=== PATIENT | male | born 1940 ===

== ENCOUNTER 2018-03-23 22:00 | Observation (INO) ==
[2018-03-23] MEDS ORDERED: PIPERACILLIN SODIUM/TAZOBACTAM 3.375 GM in DEXTROSE 5% IN WATER 50 ML IV ONE (22:20)
--- NOTE | 2018-03-23 23:00 | Emergency Department Note ---
Animal Bite HPI - General Chief Complaint: Animal Bite Stated Complaint: cat bite to left thumb Time Seen by Provider: 03/23/18 22:18 Source: patient Mode of arrival: ambulatory - History of Present Illness HPI Narrative: This 77-year-old male was seen at [facility] in [place] today for inflammation and swelling and redness to his left thumb after having had a cat bite to that thumb yesterday morning. The swelling has gotten significantly worse today and a hand surgeon, Dr. Hernandez, was consulted with patient being sent to this emergency room and recommendation for IV antibiotics and overnight treatment. Patient was seen by Dr. Blanc's physician digital assistant, Christopher Cheek PA-C, here in the emergency room and an I&D was performed on the left thumb distal pad area with limited purulence. Patient's thumb was significantly enlarged and reddened with 2 puncture wounds in the distal part of the pad. There were markings for some slight redness that extended onto the radial aspect of the wrist and forearm slight. REVIEW OF SYSTEMS: No fevers, chills, sweats, chest pain, shortness of breath, abdominal pain, dysuria. He has some chronic back pain. Has some history of anxiety and depression but not taking medications for this he has a history that includes PTSD, ADHD, OCD. - Related Data Home Medications Medication Instructions Recorded Confirmed ALPRAZolam [Xanax] 0.25 mg PO DAILY 03/23/18 03/23/18 Acetaminophen [Tylenol] 500 mg PO BID 03/23/18 03/23/18 Aspirin [Robbin Chewable Aspirin] 81 mg PO DAILY 03/23/18 03/23/18 Atorvastatin [Lipitor] 80 mg PO DAILY 03/23/18 03/23/18 Ibuprofen [Motrin] 200 mg PO BID 03/23/18 03/23/18 Loratadine [Allerclear] 10 mg PO DAILY 03/23/18 03/23/18 Losartan [Cozaar] 50 mg PO DAILY 03/23/18 03/23/18 Metoprolol Succinate 50 mg PO DAILY 03/23/18 03/23/18 guaiFENesin [Guaifenesin] 800 mg PO BID 03/23/18 03/23/18 Allergies Allergy/AdvReac Type Severity Reaction Status Date / Time aspirin Allergy Unknown Verified 03/23/18 22:50 Carbonic Anhydrase Inhibitors Allergy Unknown Verified 03/23/18 22:50 codeine Allergy Unknown Verified 03/23/18 22:50 Diclofenac Allergy Unknown Verified 03/23/18 22:50 Erythromycin Base Allergy Unknown Verified 03/23/18 22:50 fluoxetine Allergy Unknown Verified 03/23/18 22:50 Histamine H2 Inhibitors Allergy Unknown Verified 03/23/18 22:50 levofloxacin Allergy Unknown Verified 03/23/18 22:50 Macrolide Antibiotics Allergy Unknown Verified 03/23/18 22:50 NSAIDS (Non-Steroidal Allergy Unknown Verified 03/23/18 22:50 Anti-Inflamma Phenothiazines Allergy Unknown Verified 03/23/18 22:50 prochlorperazine Allergy Unknown Verified 03/23/18 22:50 Pyrazoles Allergy Unknown Verified 03/23/18 22:50 Quinolones Allergy Unknown Verified 03/23/18 22:50 ranitidine Allergy Unknown Verified 03/23/18 22:50 Salicylates Allergy Unknown Verified 03/23/18 22:50 Sulfa (Sulfonamide Allergy Unknown Verified 03/23/18 22:50 Antibiotics) sulfamethoxazole Allergy Unknown Verified 03/23/18 22:50 Sulfonylureas Allergy Unknown Verified 03/23/18 22:50 Thiazides Allergy Unknown Verified 03/23/18 22:50 CUCUMBERS,ONIONS,SOY,TUNA Allergy Unknown Uncoded 11/11/14 04:22 SEAFOOD,CAFFEINE,CHOCOLAT Allergy Unknown Uncoded 11/11/14 04:22 TOBACCO,MOLDS Allergy Unknown Uncoded 11/11/14 04:22 Yes to Iodine Allergy Unknown Uncoded 11/11/14 04:22 Yes to Latex Allergy Unknown Uncoded 11/11/14 04:22 Past Medical History - Past Medical History Medical history: Reports: atrial fibrillation (History of remotely.), 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 Denies: CVA, DM, TIA Psychiatric history: Reports: anxiety, depression, ADD, PTSD, other (OCD) Surgical history ED: Reports: coronary bypass (CABG) - Social History smoking status: Never smoker Alcohol use: Reports: Rarely (Approximately a half a shot of cognac every 2-3 weeks.) Drug use: Reports: none. Denies: marijuana Physical Exam Limitations: no limitations General appearance: alert, in no apparent distress Head: atraumatic, normocephalic Eye: Present: EOMI Neck: Present: trachea midline. Absent: lymphadenopathy, thyromegaly Respiratory: Present: normal lung sounds bilaterally, other (Somewhat distant.) . Absent: respiratory distress, wheezes, stridor, accessory muscle use, prolonged expiratory phase Cardiovascular: Present: regular rate, normal rhythm. Absent: systolic murmur, diastolic murmur Abdominal: Present: soft. Absent: distention, tenderness, guarding, rebound, rigidity, organomegaly, mass Extremities: Absent: pedal edema, pretibial edema, calf tenderness Back: Absent: CVA tenderness (R), CVA tenderness (L), spinous process tenderness Neurological: Present: alert, oriented X3 Psychiatric: Present: normal affect, normal mood Skin: Present: warm, dry Course Vital Signs Temperature 97.7 F 03/23/18 22:01 Pulse Rate 94 H 03/23/18 22:01 Respiratory Rate 17 03/23/18 22:01 Blood Pressure 206/84 03/23/18 22:01 Pulse Oximetry (%) 96 03/23/18 22:01 Temperature 97.7 F 03/23/18 22:01 Pulse Rate 94 H 03/23/18 22:01 Respiratory Rate 17 03/23/18 22:01 Blood Pressure 206/84 03/23/18 22:01 Pulse Oximetry (%) 96 03/23/18 22:01 Animal Bite - Medical Records Medical records reviewed: Yes I reviewed the patient's medical records. Disposition Pt seen by BILINGUAL SPEECH LANGUAGE PATHOLOGIST/PA only: No Clinical Impression: Cellulitis of thumb, left Cat bite of finger Qualifiers: Encounter type: subsequent encounter Qualified Code(s): S61.259D - Open bite of unspecified finger without damage to nail, subsequent encounter; W55.01XD - Bitten by cat, subsequent encounter Summary: Patient was being sent here from out of town. Requested concerns for evaluation for possible infectious tenosynovitis which was not seeming to be found. Patient was examined and I&D attempted by Dr. Pérezs, PA, Christopher Cheek PA-C; concern is how rapidly it progressed with some proximal extension of pinkness and enlargement. Pain is actually not been severe. It appears that this is less likely severe as far as a infectious tenosynovitis because his thumb is able to move easily and well including no pain with flexion or extension at the IP joint. Therefore all that is needed is the I&D and a few doses of IV antibiotics so patient will be admitted observation most likely. I spoke with Dr. Hernandez, hospitalist, who kindly accepted evaluating and patient's care in the hospital. Labs from [facility] demonstrated a mild hyponatremia at 129 and mildly elevated white count and mild anemia. Patient was afebrile and without tachycardia and did not appear toxic. Disposition: Xfer As Outpt/Obs ([facility]) Condition: Fair Referrals: Lauro Snwo MD [Primary Care Provider] -
--- NOTE | 2018-03-23 23:21 | Internal Med History&Physical ---
Medical - H&P: [facility] Patient information: Note initiated : 03/23/18 at 11:19 pm Service Date, if different from initiated Date: [] Patient: Rashaun Martin 77 y/o M admitted on for cat bite to left thumb. Chief Complaint: [] History of present illness: Mr. Martin is a 77 year old M 7-year-old male who was bitten by his cat Friday evening put a Band-Aid on it the next morning while at work and took off his bandage and noticed that it significantly swelled up with redness mild tenderness. Went into the local [facility] while evaluated there Dr. Christine was contacted patient was sent down to try to ER where Dr. owens PA performed an I&D and dressed it and put up started him on some IV antibiotics requested observation overnight in the hospital. Patient denies any fevers or chills. Has high pain tolerance to him states it looks painful but is not too uncomfortable for him. Vital signs are stable no leukocytosis. Afebrile Review of Systems: Positive for left thumb swelling redness tenderness , denies headache/fever/ chills/nausea/vomiting/chest or abdominal pain/cough/dyspnea/diarrhea. Remaining 10 point review of systems reviewed negative Medical - H&P: PMH Medical history: Past medical history includes CAD with CABG x2 vessel in 2011 Hypertension COPD not oxygen dependent Peptic ulcer disease next anxiety Past surgical history Knee surgery CABG x2 Family history Mother had CAD in father had CAD Social history Patient denies tobacco abuse drinks alcohol socially lives with family members Medical - H&P: Meds Home Medications Medication Instructions Recorded Confirmed Type ALPRAZolam [Xanax] 0.25 mg PO DAILY 03/23/18 03/23/18 History Acetaminophen [Tylenol] 500 mg PO BID 03/23/18 03/23/18 History Aspirin [Robbin Chewable Aspirin] 81 mg PO DAILY 03/23/18 03/23/18 History Atorvastatin [Lipitor] 80 mg PO DAILY 03/23/18 03/23/18 History Ibuprofen [Motrin] 200 mg PO BID 03/23/18 03/23/18 History Loratadine [Allerclear] 10 mg PO DAILY 03/23/18 03/23/18 History Losartan [Cozaar] 50 mg PO DAILY 03/23/18 03/23/18 History Metoprolol Succinate 50 mg PO DAILY 03/23/18 03/23/18 History guaiFENesin [Guaifenesin] 800 mg PO BID 03/23/18 03/23/18 History Allergies Allergy/AdvReac Type Severity Reaction Status Date / Time aspirin Allergy Unknown Verified 03/23/18 22:50 Carbonic Anhydrase Inhibitors Allergy Unknown Verified 03/23/18 22:50 codeine Allergy Unknown Verified 03/23/18 22:50 Diclofenac Allergy Unknown Verified 03/23/18 22:50 Erythromycin Base Allergy Unknown Verified 03/23/18 22:50 fluoxetine Allergy Unknown Verified 03/23/18 22:50 Histamine H2 Inhibitors Allergy Unknown Verified 03/23/18 22:50 levofloxacin Allergy Unknown Verified 03/23/18 22:50 Macrolide Antibiotics Allergy Unknown Verified 03/23/18 22:50 NSAIDS (Non-Steroidal Allergy Unknown Verified 03/23/18 22:50 Anti-Inflamma Phenothiazines Allergy Unknown Verified 03/23/18 22:50 prochlorperazine Allergy Unknown Verified 03/23/18 22:50 Pyrazoles Allergy Unknown Verified 03/23/18 22:50 Quinolones Allergy Unknown Verified 03/23/18 22:50 ranitidine Allergy Unknown Verified 03/23/18 22:50 Salicylates Allergy Unknown Verified 03/23/18 22:50 Sulfa (Sulfonamide Allergy Unknown Verified 03/23/18 22:50 Antibiotics) sulfamethoxazole Allergy Unknown Verified 03/23/18 22:50 Sulfonylureas Allergy Unknown Verified 03/23/18 22:50 Thiazides Allergy Unknown Verified 03/23/18 22:50 CUCUMBERS,ONIONS,SOY,TUNA Allergy Unknown Uncoded 11/11/14 04:22 SEAFOOD,CAFFEINE,CHOCOLAT Allergy Unknown Uncoded 11/11/14 04:22 TOBACCO,MOLDS Allergy Unknown Uncoded 11/11/14 04:22 Yes to Iodine Allergy Unknown Uncoded 11/11/14 04:22 Yes to Latex Allergy Unknown Uncoded 11/11/14 04:22 Medical - H&P: Exam - Constitutional Vitals: Temp Pulse Resp BP Pulse Ox 97.7 F 94 H 17 206/84 96 03/23/18 22:01 03/23/18 22:01 03/23/18 22:01 03/23/18 22:01 10/15/18 22:01 Exam: General: Alert, Awake, No acute Distress HEENT: EOMI, pupils equal round react to light, normocephalic atraumatic, neck supple CV: RRR, No murmurs, normal s1/s2 Pulm: Clear b/l, no wheezing/rhonchi/rales Abd: soft, nontender, +BS x4 Ext: no clubbing/cyanosis/edema with the exception of the left upper extremity: His left thumb is dressed status post I&D at the base able to see swelling and redness. 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 Hernandez following -Continue home medications - -ppx:lovenox
[2018-03-23] MEDS ORDERED: CLINDAMYCIN 600 MG/4 ML VIAL ONE (23:49)
[2018-03-24] MEDS ORDERED: ACETAMINOPHEN 325 MG TABLET PO PRN (00:09)
[2018-03-24] MEDS ORDERED: 0.9 % SODIUM CHLORIDE 1,000 ML IV SCH (00:09)
[2018-03-24] MEDS ORDERED: HYDROmorphone 2 MG/ML VIAL IV PRN (00:09)
[2018-03-24] MEDS ORDERED: HYDROcodone/APAP 5/325MG TABLET PO PRN (00:09)
[2018-03-24] MEDS ORDERED: ONDANSETRON 4 MG/2 ML VIAL IV PRN (00:09)
[2018-03-24] MEDS: PIPERACILLIN SODIUM/TAZOBACTAM 3.375 GM in DEXTROSE 5% IN WATER 50 ML IV SCH ×5 (00:14→23:20)
[2018-03-24] MEDS ORDERED: LABETALOL HCL 20 MG/4 ML SYRINGE IV ONE (00:55)
[2018-03-24] MEDS: CLINDAMYCIN 600 MG in DEXTROSE 5% IN WATER 50 ML IV SCH ×5 (01:15→23:20)
--- NOTE | 2018-03-24 01:53 | History and Physical Report ---
DATE OF ADMISSION: 03/24/2018 HISTORY OF PRESENT ILLNESS: The patient was transferred to [facility] after a concern in [place] for an infected finger after a cat bite that occurred yesterday and Orthopedics was consulted for evaluation. Upon evaluation, it was determined that the patient does not have infectious tenosynovitis, and I am more concerned of a felon. PROCEDURE NOTE: I obtained informed consent. After informed consent was contained, I performed a digital block using 5 mL of 2% lidocaine and 5 mL of Sensorcaine. I then waited a couple of minutes and applied a tourniquet to the left thumb which is where the digital block was performed. I then used an 11 blade to make an incision over the radial aspect of the distal phalanx just volar to the nail fold by 5 mm and was able to extend all the way across the thumb on the volar aspect of the bone and there was no purulent drainage appreciated. I then removed the tourniquet and applied a dressing to the finger, and the patient will be left in the care of the emergency room physician to receive 3 doses of IV antibiotics in the hospital and will be reevaluated by orthopedics tomorrow. KT:hn Job ID: [id number] Doc ID: [id number] Christopher Cheek PA-C
[2018-03-24] MEDS: LABETALOL 5 MG/ML ML IV PRN ×2 (04:33→11:58)
[2018-03-24] MEDS: 0.9 % SODIUM CHLORIDE 10 ML SYRINGE IV SCH ×3 (04:38→21:22)
[2018-03-24] MEDS ORDERED: CLINDAMYCIN 600 MG/4 ML VIAL ONE (04:59)
[2018-03-24 05:31] LABS: Basophils # (Auto) 0 K/mcL (0.0-0.3); Basophils % (Auto) 0.4 % (0.0-2.0); Eosinophils # (Auto) 0.1 K/mcL (0.0-0.7); Eosinophils % (Auto) 1.5 % (0.0-7.0); Granulocytes % (Auto) 71.7 % (38.0-78.0); Lymphocytes # (Auto) 1.1 K/mcL (1.5-4.8); Lymphocytes % (Auto) 13.2 % (15.5-49.0); Mean Cell Volume 92.7 fL (80.0-100.0); Mean Corpuscular HGB Conc 33.4 g/dL (31.0-36.0); Monocytes # (Auto) 1.1 K/mcL (0.1-0.9); Monocytes % (Auto) 13.2 % (1.0-12.0); Platelet Count 189 K/mcL (140-440); RBC 3.96 M/mcL (4.50-5.90)
[2018-03-24 05:49] LABS: ALT/SGPT 16 U/l (0-40); Albumin 4.3 gm/dL (3.2-5.2); Albumin/Globulin Ratio 1.7 (1.0-2.3); Alkaline Phosphatase 68 U/L (39-117); Bilirubin,Direct < 0.2 mg/dL (0.0-0.3); Blood Urea Nitrogen 13 mg/dl (8-23); Gamma Glutamyl Transpeptidase 15 U/L (8-61); Uric Acid 2.8 mg/dL (2.5-8.0)
--- NOTE | 2018-03-24 06:47 | Internal Med Progress Note ---
Medical - PN: Subj Patient information: Note initiated : 03/24/18 at 6:41 am Service Date, if different from initiated Date: [] Patient: Rashaun Martin 77 y/o M admitted on 03/24/18 for cat bite to left thumb. Chief Complaint: [] Interval history: Mr. Martin is a 77 year old M 7-year-old male who was bitten by his cat Friday evening put a Band-Aid on it the next morning while at work and took off his bandage and noticed that it significantly swelled up with redness mild tenderness. Went into the local [facility] while evaluated there Dr. Christine was contacted patient was sent down to try to ER where Dr. graciela RAMIREZ performed an I&D and dressed it and put up started him on some IV antibiotics requested observation overnight in the hospital. Patient denies any fevers or chills. Has high pain tolerance to him states it looks painful but is not too uncomfortable for him. Vital signs are stable no leukocytosis. Afebrile 03/24 did not sleep much, has no new complaints. No Fevers or chills. Review of Systems: denies headache/fever/chills/nausea/vomiting/chest or abdominal pain/cough/ dyspnea/diarrhea. Otherwise see above. - Constitutional Vitals: Vital Signs Temp Pulse Resp BP Pulse Ox 98.9 F 59 L 28 H 130/79 97 03/24/18 04:20 03/24/18 04:45 03/24/18 04:20 03/24/18 04:45 03/24/18 04:20 Period Temp Pulse Resp BP Sys/Cruz Pulse Ox Last 24 Hr 97.7 F-98.9 F 55-111 14-28 126-206/77-117 96-100 Intake and Output 03/23/18 03/24/18 03/24/18 21:59 05:59 13:59 Intake Total 194 / 194 Output Total 475 / 475 200 / 200 Balance -281 / -281 -200 / -200 Weight 64.864 kg Intake & Output: Intake & Output 03/23/18 03/24/18 03/24/18 21:59 05:59 13:59 Intake Total 194 / 194 Output Total 475 / 475 200 / 200 Balance -281 / -281 -200 / -200 Weight 64.864 kg Intake: IV 104 / 104 Cleocin 600 mg In Dextrose 5% 54 / 54 in Water 50 ml @ 100 mls/hr IV Q6H [facility] Rx#:[id number] Zosyn 3.375 gm In Dextrose 5% 50 / 50 in Water 50 ml @ 100 mls/hr IV ONCE ONE Rx#:[id number] Oral 90 / 90 Output: Void Amount 475 / 475 200 / 200 Other: Urine Appearance Clear Clear Urine Color Pale Pale Exam: General: Alert, Awake, No acute Distress HEENT: EOMI, pupils equal round react to light, normocephalic atraumatic, neck supple CV: RRR, No murmurs, normal s1/s2 Pulm: Clear b/l, no wheezing/rhonchi/rales Abd: soft, nontender, +BS x4 Ext: no clubbing/cyanosis/edema with the exception of the left upper extremity, which is currently in dressings Neuro: Alert, no focal deficits, moves all extremities Skin: warm/dry Medical - PN: Obj Da - Labs CBC & Chem 7: 03/24/18 04:00 03/24/18 04:00 Labs: Abnormal Lab Results 03/24/18 03/24/18 04:00 04:00 RBC 3.96 L Hgb 12.3 L Hct 36.7 L MPV 7.1 L Lymph % (Auto) 13.2 L [place] % (Auto) 13.2 H Lymph # (Auto) 1.1 L [place] # (Auto) 1.1 H Glucose 108 H Meds: Medications Acetaminophen (Tylenol) 650 mg PO Q6HP PRN PRN Reason: PAIN/FEVER > 101 Hydrocodone Bitart/Acetaminophen ([place] 5/325mg) 1 tab PO Q4HP PRN PRN Reason: PAIN LEVEL 3-6 Alprazolam (Xanax) 0.25 mg PO DAILY [facility] Aspirin (Aspirin) 81 mg PO DAILY [facility] Atorvastatin Calcium (Lipitor) 80 mg PO DAILY [facility] Docusate Sodium (Colace) 100 mg PO BID [facility] Enoxaparin Sodium (Lovenox) 40 mg SQ DAILY [facility] Hydromorphone HCl (Dilaudid) 0.5 mg IV Q2HP PRN PRN Reason: PAIN LEVEL > 6 Clindamycin Phosphate 600 mg/ (Dextrose) 54 mls @ 100 mls/hr IV Q6H DON Stop: 10/17/18 06:42 Last Admin: 03/24/18 05:30 Dose: Not Given Sodium Chloride (Sodium Chloride 0.9%) 1,000 mls @ 150 mls/hr IV .Q6H40M [facility] Stop: 03/24/18 06:48 Last Admin: 03/24/18 01:15 Dose: 150 mls/hr Piperacillin Sod/Tazobactam (Sod 3.375 gm/ Dextrose) 50 mls @ 100 mls/hr IV Q6H [facility] Last Admin: 03/24/18 06:06 Dose: 100 mls/hr Ibuprofen (Motrin) 200 mg PO BID DON Labetalol HCl (Trandate) 0 mg IV Q2H PRN PRN Reason: Hypertension Last Admin: 03/24/18 04:33 Dose: 10 mg Losartan Potassium (Cozaar) 50 mg PO DAILY DON Metoprolol Succinate (Toprol Xl) 50 mg PO DAILY [facility] Ondansetron HCl (Zofran) 4 mg IV Q6HP PRN PRN Reason: Nausea And Vomiting Sodium Chloride (Saline Flush) 10 ml IV Q8 [facility] Last Admin: 03/24/18 04:38 Dose: Not Given Medical - PN: A/P - Time Spent With Patient Total time spent is greater than 50% in coordination of care (as documented) at patient's floor/unit and/or counseling patient: - Narrative A/P Narrative: A: *Cellulitis left thumb after cat Bite, nonpurulent: Status post I&D *Hyponatremia: resolved *History of CAD *Hypertension *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 Hernandez following -Continue home medications -ppx: lovenox
[2018-03-24] MEDS: IBUPROFEN 200 MG TABLET PO SCH ×2 (08:46→21:21)
[2018-03-24] MEDS: METOPROLOL SUCCINATE 50 MG TAB.XL.24H PO SCH (08:46)
[2018-03-24] MEDS: ATORVASTATIN 20 MG TABLET PO SCH (08:46)
[2018-03-24] MEDS: DOCUSATE SODIUM 100 MG CAPSULE PO SCH ×2 (08:46→21:19)
[2018-03-24] MEDS: ENOXAPARIN 40 MG/0.4 ML SYRINGE SQ SCH (08:47)
[2018-03-24] MEDS: ASPIRIN 81 MG TAB.CHEW PO SCH (08:47)
[2018-03-24] MEDS: LOSARTAN 50 MG TABLET PO SCH (08:47)
[2018-03-24] MEDS ORDERED: ALPRAZolam 0.25 MG TABLET PO SCH ×2 (09:00→21:00)
[2018-03-24] MEDS ORDERED: IPRATROPIUM 2.5 ML AMPUL.NEB NEB PRN (21:00)
[2018-03-25] MEDS: PIPERACILLIN SODIUM/TAZOBACTAM 3.375 GM in DEXTROSE 5% IN WATER 50 ML IV SCH ×2 (04:53→13:01)
[2018-03-25] MEDS: CLINDAMYCIN 600 MG in DEXTROSE 5% IN WATER 50 ML IV SCH (04:53)
[2018-03-25] MEDS: 0.9 % SODIUM CHLORIDE 10 ML SYRINGE IV SCH (04:53)
[2018-03-25] MEDS: DOCUSATE SODIUM 100 MG CAPSULE PO SCH (08:11)
[2018-03-25] MEDS: ATORVASTATIN 20 MG TABLET PO SCH (08:11)
[2018-03-25] MEDS: LOSARTAN 50 MG TABLET PO SCH (08:11)
[2018-03-25] MEDS: IBUPROFEN 200 MG TABLET PO SCH (08:11)
[2018-03-25] MEDS: ENOXAPARIN 40 MG/0.4 ML SYRINGE SQ SCH (08:12)
[2018-03-25] MEDS: ASPIRIN 81 MG TAB.CHEW PO SCH (08:12)
[2018-03-25] MEDS: METOPROLOL SUCCINATE 50 MG TAB.XL.24H PO SCH (08:12)
--- NOTE | 2018-03-25 12:04 | Discharge Summary ---
Medical - DS: Prov Patient information: Note initiated : 03/25/18 at 12:00 pm Service Date, if different from initiated Date: [] Patient: Rashaun Martin 77 y/o M admitted on 03/24/18 for Cellulitis Left Thumb after Cat Bite. Chief Complaint: [] Date of admission: 03/24/18 00:03 Discharge date: 03/25/18 Primary care physician: Lauro Snow Consults: 03/23/18 Consult to Physician [CONS] Stat Comment: Consulting Provider: Trevor Hernandez Reason For Exam: Physician to Consult Consult to Physician [CONS] Stat Comment: Consulting Provider: Christopher Cheek Reason For Exam: Physician to Consult Discharging clinician: Cholo Valladares Medical - DS: Meds - Discharge Medications Prescriptions: Amoxicillin/Potassium Clav [Augmentin] 875 mg PO Q12H #20 tab oxyCODONE HCL [Oxycodone HCl] 2.5 - 5 mg PO Q6HP PRN #10 tab PRN Reason: Pain Active and Home Medications: Home Medications ALPRAZolam [Xanax] 0.25 mg PO DAILY 03/23/18 [History Confirmed 03/24/18 Last Taken 03/22/18 21:00] Acetaminophen [Tylenol] 500 mg PO BID 03/23/18 [History Confirmed 03/24/18 Last Taken 03/23/18 08:00] Aspirin [Robbin Chewable Aspirin] 81 mg PO DAILY 03/23/18 [History Confirmed Last Taken 03/22/18 21:00] Atorvastatin [Lipitor] 40 mg PO DAILY 03/23/18 [History Confirmed 03/24/18 Last Taken 03/22/18 21:00] Ibuprofen [Motrin] 200 mg PO BID 03/23/18 [History Confirmed 03/24/18 Last Taken 03/22/18 21:00] Loratadine [Allerclear] 10 mg PO DAILY 03/23/18 [History Confirmed 03/24/18 Last Taken Unknown] Losartan [Cozaar] 50 mg PO DAILY 03/23/18 [History Confirmed 03/24/18 Last Taken 03/23/18 09:00] Metoprolol Succinate 50 mg PO DAILY 03/23/18 [History Confirmed 03/24/18 Last Taken 03/23/18 21:00] guaiFENesin [Guaifenesin] 800 mg PO BID 03/23/18 [History Confirmed 03/24/18 Last Taken 03/23/18 09:00] Ipratropium [Atrovent] 2.5 ml NEB Q6HRT PRN 03/24/18 [History Confirmed Last Taken 03/23/18 21:00] Lasix 20 mg PO PRN PRN 03/24/18 [History Confirmed 03/24/18 Last Taken 09/07/17] Vitamin C 1,000 mg PO DAILY 03/24/18 [History Confirmed 03/24/18 Last Taken Unknown] Medical - DS: Hosp Hospital course: Mr. Martin is a 77 year old M 7-year-old male who was bitten by his cat Friday evening put a Band-Aid on it the next morning while at work and took off his bandage and noticed that it significantly swelled up with redness mild tenderness. Went into the local [facility] facility while evaluated there Dr. Christine was contacted patient was sent down to try to ER where Dr. owens PA performed an I&D and dressed it and put up started him on some IV antibiotics requested observation overnight in the hospital. Patient denies any fevers or chills. Has high pain tolerance to him states it looks painful but is not too uncomfortable for him. Patient was admitted to the hospital for management of cellulitis/ and wound care per hand surgery. Hand surgery evaluated the patient, s/p Incision and Drainage, s/p IV ABX with zosyn and clinda x 48 hrs with good response. Patient cellulitis improved significantly Hand surgery team advised discharge home with oral augmentin for 10 more days. the rest of the stay in the hospital was uneventful, no changes made to patients home medication list. Discharge diagnosis: Cat Bite Cellulitis - Time Spent with Patient Total time spent providing and/or coordinating discharge services: Less than 30 minutes Medical - DS: Exam - Constitutional Vitals: Vital Signs Temp Pulse Resp BP BP Pulse Ox 03/25/18 11:33 98.1 F 51 L 16 153/88 99 03/25/18 06:55 98.3 F 55 L 16 149/85 97 03/25/18 04:58 98.8 F 55 L 16 149/82 96 03/25/18 00:00 98.7 F 58 L 16 138/87 98 10/16/18 20:00 99.2 F H 59 L 20 129/74 98 03/24/18 15:51 97.8 F 57 L 18 144/80 100 03/24/18 12:53 58 L 131/73 03/24/18 12:18 119/78 03/24/18 12:14 98.5 F 57 L 18 120/74 98 Intake and Output 03/24/18 03/25/18 03/25/18 21:59 05:59 13:59 Intake Total 904 / 904 154 / 154 174 / 174 Output Total 175 / 175 500 / 500 Balance 904 / 904 -21 / -21 -326 / -326 Intake: IV 104 / 104 154 / 154 54 / 54 Cleocin 600 mg In Dextrose 5% 54 / 54 54 / 54 54 / 54 in Water 50 ml @ 100 mls/hr IV Q6H DON Rx#:[id number] Zosyn 3.375 gm In Dextrose 5% 50 / 50 100 / 100 in Water 50 ml @ 100 mls/hr IV Q6H DON Rx#:[id number] Oral 800 / 800 120 / 120 Output: Void Amount 175 / 175 500 / 500 Other: Meal Breakfast Percent of Meal Consumed 100% Feeding Ability Independent Urine Appearance Clear Clear Urine Color Dark Yellow Dark Yellow # Voids 3 Weight 147 lb 12.8 oz Additional comments: Constitutional; Afebrile, cooperative, alert, not in distress. Eyes- No icterus, , No periorbital swelling Ears- Ext ear normal, hearing normal to conversation. Neck- Midline trachea, supple Respiratory system: Air Entry equal on both sides, No crackles or wheezing, no rhonchi. CVS- Rate rhythm regular, S1,S2 heard, no gallop, no rub. Abdomen- Soft nontender abdomen, no organomegaly, no tenderness, no guarding or rigidity, [employer] UP OPERATOR- AOOx3, moving all extremities, no gross focal deficit noted. Medical - DS: A/P - Patient/Caregiver Discharge Instructions Activity: increase activity as tolerated Diet: Regular Diet Additional Instructions: Change to a new bandaid daily. Place gauze over wound if actively bleeding. You may shower. Do not soak finger in water. Minimal activity to finger to minimize bleeding. Keep elevated as much as possible to promote healing and reduce pain and swelling. Call [facility] at ([phone]) if increased redness, increased pain , increased swelling, and redness creeping up the arm. Otherwise follow up with ASHLEY Gregorio on Friday, . Take the full course of your oral antibiotic, Augmentin, twice daily for 10 days. Prescriptions: Amoxicillin/Potassium Clav [Augmentin] 875 mg PO Q12H #20 tab oxyCODONE HCL [Oxycodone HCl] 2.5 - 5 mg PO Q6HP PRN #10 tab PRN Reason: Pain - Follow up Plan Follow up with: Lauro Snow MD [Primary Care Provider] - Christopher Cheek PA-C [Physician [facility]] - 03/30/18 9:40 am ( ) Disposition: Home, Self-Care Prognosis: Fair Rehab Potential: Fair I certify that the patient requires SNF services: No Overall status at discharge: patient is progressing back to baseline
[2018-03-25] MEDS ORDERED: AMOXICILLIN/POTASSIUM CLAV 875 MG TABLET PO ONE (12:05)
== END 2018-03-25 13:40 | disposition home or self-care (01) ==
LOC: ED 22:00 → MEDSUR 22:00
PROVIDERS: ADMIT Internal Medicine; ATTEND Internal Medicine
CPT/HCPCS: 99217; 99220; G0378; J1650; J2543; J7030; J7060